=== PATIENT | female | born 1945 | race Caucasian/White ===

== ENCOUNTER → 2016-09-23 | Outpatient (CLI) | payer MEDICARE, OTHER ==
[~2016-09-23] MED LIST: PRILOSEC20 MG PO; TRIAMTERENE-HC1 EACH PO; TYLENOL EXTRA500 MG PO
[2016-09-23 13:45] LABS: BASOPHIL # 0.1 K/uL (0.0-0.2); BASOPHIL % 0.8 %; EOSINOPHIL # 0.1 K/uL (0.0-0.5); EOSINOPHIL % 0.9 %; HEMATOCRIT 44.3 % (33.0-46.0); HEMOGLOBIN 14.6 g/dL (10.0-15.0); IMMATURE GRANULOCYTE % 0.2 %; LYMPHOCYTE # 3.4 K/uL (0.8-4.0); LYMPHOCYTE % 37.8 %; MCV 100.2 fl (83.0-98.0); MONOCYTE # 0.9 K/uL (0.0-1.0); MONOCYTE % 10.1 %; MPV 8.9 fl (9.4-12.4); NEUTROPHIL # (ANC) 4.5 K/uL (1.8-7.8); NEUTROPHIL % 50.2 %; NRBC % 0 /100WBC (0-0.00); PLATELET COUNT 438 K/uL (150-450); RBC 4.42 M/uL (3.50-5.50); RDW-CV 13.5 % (11.9-14.6)
[2016-09-23 13:54] LABS: INR - (THERAPEUTIC) 0.93 (0.92-1.07); PROTIME 9.8 SECONDS (9.8-11.4)
[2016-09-23 13:59] LABS: ALBUMIN 4.1 gm/dL (3.5-5.0); ANION GAP 10.1 (10.0-19.0); BLOOD UREA NITROGEN 13 mg/dL (6-24); CALCIUM 9.1 mg/dL (8.5-10.5); CHLORIDE 96 mMol/L (96-110); CO2 30 mMol/L (22-32); CREATININE 0.6 mg/dL (0.5-1.1); ESTIMATED GFR (MDRD EQUATION) > 60; PHOSPHORUS 3.7 mg/dL (2.5-4.9); POTASSIUM 4.1 mMol/L (3.7-5.1); SODIUM 132 mMol/L (135-145)
== END | disposition disaster alternative care site (69) ==
LOC: GOPD 09-18 10:30
PROVIDERS: Family Medicine
PROC: 3E0S3GC Introduction of Other Therapeutic Substance into Epidural Space, Percutaneous Approach (ICD-10-PCS; principal; 2016-09-23)
DX: M54.31 Sciatica, right side (principal)
CPT/HCPCS: J1040